=== PATIENT | male | born 1985 | race American Indian/Alaskan Native ===

== ENCOUNTER 2018-05-07 17:02 | Emergency (ER) | payer SELFPAY ==
[2018-05-07 17:13] VITALS: BP 135/92
[2018-05-07] MEDS ORDERED: ZOFRAN ODT PO ONE (17:39)
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
== END 2018-05-07 17:54 | disposition home or self-care (01) ==
LOC: ED 17:02
DX: R11.2 Nausea with vomiting, unspecified (principal); G89.29 Other chronic pain
CPT/HCPCS: 99282; Q0162